=== PATIENT | male | born 1985 | race Two or more races ===

== ENCOUNTER 2021-02-12 16:08 | Emergency (ER) | payer OTHER ==
[2021-02-12] MEDS ORDERED: LIDOCAINE VISCOUS 2% 15 ML UDC MM STA (16:22)
[2021-02-12] MEDS ORDERED: MAG HYDROX/AL HYDROX/SIMETH 30 ML UDC PO STA (16:22)
[2021-02-12] MEDS ORDERED: PANTOPRAZOLE 40 MG TABLET PO STA (16:23)
--- NOTE | 2021-02-12 16:26 | ED Physician Documentation ---
History of Present Illness - Stated complaint Stated Complaint: ABD PX - Chief complaint Chief Complaint: Abd Pain - Additonal information Additional information: 35-year-old male presents emergency department for evaluation of 3 days epigast shaila pain. He reports a constant burning sensation in the epigastrium substernal space. He has been taking Tums Tylenol and Pepto-Bismol with some partial relief. He denies tobacco but does drink beer frequently. He also uses ibuprofen liquid gels nearly every day for knee and joint pain. No fevers. Vomiting x1. Denies black or bloody stools. no chest pain or SOA Past surgical history includes previous appendectomy. Review of Systems Constitutional: reports: Reviewed and negative Nose: reports: Reviewed and negative Throat: reports: Reviewed and negative Cardiac: denies: Chest pain / pressure, Palpitations, Pedal edema, Calf pain GI: reports: Abdominal Pain, Nausea, Vomiting. denies: Constipation, Hematemesis, Bloody / black stool : reports: Reviewed and negative Skin: reports: Reviewed and negative Musculoskeletal: reports: Reviewed and negative Neurologic: reports: Reviewed and negative PD PAST MEDICAL HISTORY - Present Medications Home Medications: Ambulatory Orders Medication Instructions Recorded Confirmed Omeprazole [PriLOSEC] 20 mg PO BID #60 02/12/21 Sucralfate [Carafate] 1 gm PO ACHS #60 tablet 02/12/21 - Allergies Allergies/Adverse Reactions: Allergies Allergy/AdvReac Type Severity Reaction Status Date / Time pineapple Allergy Itching Verified 02/12/21 16:19 PD ED PE EXPANDED - General General: Alert, In Pain - Cardiac Cardiac: Regular Rate, Radial strong equal, Pedal strong equal, Cap refill < 2 sec. No: Murmur Present - Respiratory Respiratory: Clear to ausultation addy. No: Distress, Labored - Abdomen Abdomen: Normal Bowel sounds, Tender to palpation, Epigastric. No: Rebound, Guarding (Tenderness to the epigastrium. Does not radiate. Negative Bah's. No lower abdominal or left-sided abdominal tenderness elicited.), Hepatomegaly - Derm Derm: Normal color, Warm and dry - Extremities Extremities: Normal. No: Deformity, Tenderness - Neuro Neuro: Alert and Oriented X 3, CNII-XII intact - GCS Eye Opening: Spontaneous Motor: Obeys Commands Verbal: Oriented Total: 15 Results - Vitals Vitals: Vital Signs - 24 hr 02/12/21 02/12/21 16:18 16:23 Temperature 36.9 C Heart Rate 76 79 Respiratory 18 17 Rate Blood Pressure 157/85 H 157/85 H O2 Saturation 99 99 Oxygen O2 Source Room air - Labs Labs: Laboratory Tests 02/12/21 02/12/21 16:27 16:27 WBC 5.5 RBC 4.93 Hgb 14.6 Hct 44.0 MCV 89.2 MCH 29.6 MCHC 33.2 RDW 13.5 Plt Count 254 MPV 9.0 Neut # (Auto) 3.5 Lymph # (Auto) 1.5 Emanuel # (Auto) 0.5 Eos # (Auto) 0.0 Baso # (Auto) 0.0 Absolute Nucleated RBC 0.00 Nucleated RBC % 0.0 Sodium 137 Potassium 3.7 Chloride 103 Carbon Dioxide 25 Anion Gap 9.0 BUN 9 Creatinine 0.8 Estimated GFR (MDRD) 111 Glucose 108 H Calcium 9.3 Total Bilirubin 1.2 H AST 27 ALT 30 Alkaline Phosphatase 69 Total Protein 7.7 Albumin 4.7 Globulin 3.0 Albumin/Globulin Ratio 1.6 Lipase 26 PD MEDICAL DECISION MAKING - ED course Complexity details: reviewed results, re-evaluated patient, considered differential, d/w patient ED course: 35-year-old male presents the emergency department for evaluation of sharp epigastric burning pain that has been present for 3 to 4 days. He is a daily NSAID user with ibuprofen Liqui-Gels as well is a moderate beer drinker. History and exam is most suggestive of gastritis and GERD. I have lower suspicion for acute cholecystectomy given lack of right upper quadrant abdominal pain and fairly unremarkable liver function tests. He previously has had an appendectomy. Therefore deferred any further imaging. No chest pain or shortness of air. Deferred chest x-ray EKG or troponin. Here in the emergency department screening labs showed no leukocytosis significant transaminase or abnormal renal function. This gentleman was given Protonix, viscous lidocaine as well as Maalox with near full resolution of the symptoms. I suspected that the gastritis is secondary to NSAID use and have advised him to discontinue all NSAID use. I am going to place him on omeprazole daily and carafate and he is to follow-up with [facility] shortly. He should be referred for an EGD. Emergent return precautions were discussed for melena worsening pain fevers uncontrolled vomiting or suddenly severe or different abdominal pain. Departure - Departure Disposition: 01 Home, Self Care Clinical Impression: Epigastric abdominal pain Gastritis Qualifiers: Gastritis type: unspecified gastritis Chronicity: acute Gastritis bleeding: without bleeding Qualified Code(s): K29.00 - Acute gastritis without bleeding Condition: Stable Record reviewed to determine appropriate education?: Yes Instructions: ED PUD Vs Gastritis Prescriptions: Sucralfate [Carafate] 1 gm PO ACHS #60 tablet Omeprazole [PriLOSEC] 20 mg PO BID #60 Comments: Yemi I am glad that you are feeling better. As we discussed I suspect that the cause of your upper abdominal pain is likely gastritis which is stomach inflammation or early peptic ulcer disease which is ulcer formation. It is important that you discontinue any NSAID use at this time. No more ib uprofen or naproxen or aspirin. I would also like you to stop eating spicy foods and significantly cut back on your alcohol use. I am prescribing a medication called omeprazole which is an acid banjo repairer to be used twice a day as well as Carafate which is a medication that will help coat the stomach and protect it while you are sleeping to be used once a night. Please discuss this ED visit with [facility] tomorrow. You should be referred for an upper endoscopy to look at the lining of your stomach and first portion of intestines. If at any point you have suddenly severe or different abdominal pain, fevers, uncontrolled vomiting, black or bloody stools please return to the ER for a second look.
[2021-02-12 16:33] LABS: BASOPHILS % (AUTO) 0.7 %; EOSINOPHILS % (AUTO) 0.2 %; HGB - HEMOGLOBIN 14.6 g/dL (14.0-18.0); LYMPHOCYTES # (AUTO) 1.5 10^3/uL (1.5-3.5); LYMPHOCYTES % (AUTO) 26.2 %; MEAN CORPUSCULAR HEMOGLOBIN 29.6 pg (27.0-31.0); MEAN CORPUSCULAR HGB CONC 33.2 g/dL (32.0-36.0); MEAN CORPUSCULAR VOLUME 89.2 fL (80.0-94.0); MONOCYTES # (AUTO) 0.5 10^3/uL (0.0-1.0); MONOCYTES % (AUTO) 8.7 %; NEUTROPHILS # (AUTO) 3.5 10^3/uL (1.5-6.6); PLT - PLATELET COUNT 254 10^3/uL (130-450); RED BLOOD COUNT 4.93 10^6/uL (4.70-6.10); RED CELL DISTRIBUTION WIDTH 13.5 % (12.0-15.0); WHITE BLOOD COUNT 5.5 x10^3/uL (4.8-10.8)
[2021-02-12 16:45] LABS: ALBUMIN 4.7 g/dL (3.2-5.5); ALBUMIN/GLOBULIN RATIO 1.6 (1.0-2.2); BILIRUBIN,TOTAL 1.2 mg/dL (0.2-1.0); CALCIUM 9.3 mg/dL (8.5-10.3); CREATININE 0.8 mg/dL (0.6-1.2); POTASSIUM 3.7 mmol/L (3.5-5.0); TOTAL PROTEIN 7.7 g/dL (6.7-8.2)
[2021-02-12 17:27] VITALS: BP 133/70
== END 2021-02-12 17:26 | disposition home or self-care (01) ==
LOC: ED 16:08
DX: K29.00 Acute gastritis without bleeding (principal); K21.9 Gastro-esophageal reflux disease without esophagitis; Z90.49 Acquired absence of other specified parts of digestive tract
CPT/HCPCS: 36415; 80053; 83690; 85025; 99283; 99284; A9270

== ENCOUNTER 2021-08-01 12:00 | Outpatient (CLI) | payer OTHER | END 2021-08-01 12:01 | disposition critical access hospital (66) | LOC: EMS 12:00 | DX: Z04.1 Encounter for examination and observation following transport accident (principal); M54.2 Cervicalgia; M54.9 Dorsalgia, unspecified | CPT/HCPCS: A0425; A0429 ==

== ENCOUNTER 2021-08-01 12:51 | Emergency (ER) | payer OTHER ==
[2021-08-01 13:06] VITALS: BP 141/90
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
[2021-08-01] MEDS: IBUPROFEN 800 MG TABLET PO STA (13:36)
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
== END 2021-08-01 14:36 | disposition home or self-care (01) ==
LOC: EDUNIT# → ED 12:51
DX: S16.1XXA Strain of muscle, fascia and tendon at neck level, initial encounter (principal); V89.2XXA Person injured in unspecified motor-vehicle accident, traffic, initial encounter
CPT/HCPCS: 72125; 99284; A9270

== ENCOUNTER 2021-10-20 10:59 | Emergency (ER) | payer OTHER ==
[2021-10-20 11:10] VITALS: BP 146/94
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
--- NOTE | 2021-10-20 13:21 | CT Report ---
PROCEDURE: HEAD WO INDICATIONS: headaches x 1 month TECHNIQUE: Noncontrast 4.5 mm thick angled axial sections acquired from the foramen magnum to the vertex. For r adiation dose reduction, the following was used: automated exposure control, adjustment of mA and/or kV according to patient size. COMPARISON: Correlation is made with prior brain MRI, [facility] protocol, 11/01/2015. FINDINGS: Image quality: Excellent. CSF spaces: Basal cisterns are patent. No extra-axial fluid collections. Ventricles are normal in size and shape. Brain: No midline shift. No intracranial masses or hemorrhage. Krishnamurthy-white matter interface is norm al. Skull and face: Calvarium and visualized facial bones are intact, without suspicious lesions. Sinuses: Visualized sinuses and mastoids are clear. IMPRESSION: A cause of headache cannot be seen on these images. No intracranial hemorrhage is seen. No hydrocephalus is seen. No Chiari I malformation. Reviewed by: Vinayak Dunn MD on 10/20/2021 12:19 PM [facility] Approved by: Vinayak Dunn MD on 10/20/2021 12:19 PM [facility] Station ID: [id number]
== END 2021-10-20 13:44 | disposition home or self-care (01) ==
LOC: ED 10:59
DX: R51.9 Headache, unspecified (principal)
CPT/HCPCS: 99282; 99284

== ENCOUNTER 2022-01-21 12:48 | Outpatient (CLI) | payer OTHER ==
[2022-01-21] MEDS ORDERED: GADOBUTROL 10 MMOL/10 ML VIAL ONE (13:05)
--- NOTE | 2022-01-21 14:55 | MRI Report ---
PROCEDURE: Brain W/WO INDICATIONS: HEADACHE CONTRAST: IV CONTRAST: Gadavist ml: 8.2 TECHNIQUE: Noncontrast axial T1 spin echo, axial T2 fast spin echo, sagittal and axial FLAIR, coronal T2 fast sp in echo, axial gradient echo, axial diffusion and ADC through the brain. After the administration of contrast, axial and coronal T1 spin echo with fat saturation through the brain. COMPARISON: Correlation is made with prior head CT, 10/20/2021. [facility] is also made [facility], 11/01/2015 FINDINGS: Image quality: Excellent. CSF spaces: Basal cisterns are patent. No extra-axial fluid collections. Ventricles are normal in size and shape. Brain: No midline shift. No intracranial bleeds or masses. No abnormal intracranial enhancement. The brainstem appears normal. Diffusion-weighted images demonstrate no acute ischemic insults. No c hronic ischemic insults. Normal intravascular flow voids are present. The cerebellar tonsils do not appear abnormally low-lying. Skull and face: Calvarial marrow is normal in signal. Orbits appear normal. Sinuses: Sinuses and mastoids appear clear. IMPRESSION: A cause of headache cannot be seen on these images. No masses or abnormal enhancement can be seen. Reviewed by: Vinayak Dunn MD on 01/21/2022 1:53 PM [facility] Approved by: Vinayak Dunn MD on 01/21/2022 1:53 PM [facility] Station ID: [id number]
[2022-01-22] MEDS ORDERED: GADOBUTROL 10 MMOL/10 ML VIAL IVP ONE (08:00)
== END 2022-01-21 12:49 | disposition home or self-care (01) ==
LOC: DI 12:48
PROVIDERS: ATTEND Student in an Organized Health Care Education/Training Program
DX: R51.9 Headache, unspecified (principal)
CPT/HCPCS: 70553; A9585